=== PATIENT | male | born 1995 | race Caucasian/White ===

== ENCOUNTER 2020-02-08 02:38 | Emergency (ER) | payer SELFPAY ==
[2020-02-08 02:42] VITALS: BP 154/109; PULSE 82; RESP 20; O2SAT 99; BMI 21.4
--- NOTE | 2020-02-08 02:49 | ECG_ITS ---
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 Measurements Intervals [place] Rate: 68 P: 34 [place]: 138 QRS: 57 QRSD: 87 T: 52 QT: 353 QTc: 377 Interpretive Statements SINUS RHYTHM WITH SINUS ARRHYTHMIA Compared to ECG 02/04/2015 21:33:27 No significant changes Electronically Signed On 02-08-2020 19:04:17 CDT by Anant Amin M.D. [id number] f
--- NOTE | 2020-02-08 02:50 | ED_ITS ---
Documented by User: LEXIS Maciel 02/08/20 03:00 HPI - Weakness General: Chief complaint: Weakness Stated complaint: WEAKNESS Time Seen by Provider: 02/08/20 02:49 History of Present Illness: HPI Narrative: Patient comes in today for complaints of weakness. Patient states that he was at work and suddenly became faint and felt like he was going to pass out. Patient was concerned he might have a seizure. Patient has a history of one seizure that occurred about 7 years ago but has not had any further seizures since. No seizure was reported tonight. Patient is alert and is recovered at this time. Patient felt disc omfort in his chest but no significant chest pain. Patient reports not eating anything this morning but has had a Mountain Dew and an energy drink. Patient also reports some water. Patient appears well. Patient appears in no pain. Review of Systems General: Reports: 10 or more systems reviewed and unremarkable except in HPI and below Neuro: Reports: weakness in extremities Physical Exam Const: COMMON NORMALS: no acute distress and patient oriented x3 GENERAL APPEARANCE: cooperative HENMT: COMMON NORMALS: normocephalic and Normal external nose present HEAD & SCALP: normal to inspection and normocephalic NOSE: Normal external nose present MOUTH: Normal oral and palatal mucosa present THROAT: posterior oropharynx normal Eye: GENERAL EYE: appearance normal, both eyes and all related structures Neck/C-Spine: COMMON NORMALS: full ROM Lymph: LYMPHATIC: no lymphadenopathy noted Chest: COMMONS NORMALS: normal inspection of the chest Resp: COMMON NORMALS: normal respiratory effort EFFORT & INSPECTION: Yes able to speak in complete sentences Cardio: COMMON NORMALS: regular rate and regular rhythm RATE: regular rate RHYTHM: regular rhythm GI: COMMON NORMALS: non-tender Back/Pelvis: COMMON NORMALS: thoracic and lumbar spine normal to inspection Extremity: COMMON NORMALS: normal to inspection Neuro: COMMON NORMALS: patient oriented x3 and moves all extremities Psych: COMMON NORMALS: mental status grossly normal and cooperative Skin: COMMON NORMALS: no rashes or lesions noted GENERAL SKIN EXAM: no rashes or lesions noted Course ED course: , discussed with Dr. Moon who agreed to assume care of patient on my leave. Patient reports that he just feels much better since arriving at the emergency room. Patient appears well. Outstanding labs. EKG noted sinus rhythm. wjw Vital Signs: Vital signs: Vital Signs Pulse Rate 73 07/12/20 05:07 Respiratory Rate 17 02/08/20 05:07 Blood Pressure 155/88 02/08/20 05:07 Pulse Oximetry 99 02/08/20 05:07 MDM - Weakness MDM Narrative: Medical decision making narrative: Lab Data: Labs: Lab Results 02/08/20 02/08/20 02/08/20 Range/Units 02:48 02:48 02:48 WBC 10.8 H (4.0-10.0) 10^3/ uL RBC 5.47 H (4.1-5.3) 10^6/u L Hgb 15.6 (11.7-16.6) g/dL Hct 45.2 (42.0-52.0) % MCV 82.6 (80-94) fL MCH 28.5 (28.0-34.0) pg MCHC 34.5 (30.0-36.0) g/dL RDW 11.9 L (12.1-15.1) % Plt Count 298 (130-400) 10^3/c mm MPV 10.4 (7.4-10.4) fL Neut % (Auto) 63.0 % Lymph % (Auto) 31.0 % [place] % (Auto) 4.2 % Eos % (Auto) 0.9 % Baso % (Auto) 0.5 % Neut # (Auto) 6.84 (1.8-7.7) 10^3/u L Lymph # (Auto) 3.4 (0.8-4.8) 10^3/u L [place] # (Auto) 0.5 (0.2-0.9) 10^3/u L Eos # (Auto) 0.1 (0.0-0.8) 10^3/u L Baso # (Auto) 0.1 (0.0-0.1) 10^3/u L Nucleated RBC % (a uto) 0 % Nucleated RBCs # 0.0 /100WBC Sodium 138 (136-145) mmol/L Potassium 3.1 L (3.5-5.1) mmol/L Chloride 100 (98-107) mmol/L Carbon Dioxide 21 L (22-29) mmol/L Anion Gap 20.1 H (5-19) BUN 12 (6-20) mg/dL Creatinine 1.1 (0.7-1.2) mg/dL GFR Calculation 80.9 L (90-130) mL/min Glucose 105 (65-115) mg/dL Calculated Osmolal ity 282 L (285-295) mOsm/k g Calcium 10.3 (8.5-10.5) mg/dL Total Bilirubin 0.5 (0.15-1.2) mg/dL AST 21 (0-40) U/L ALT 17 (0-41) U/L Alkaline Phosphata se 73 (40-130) IU/L Creatine Kinase 294 (39-308) U/L Troponin T Gen 5 n g/L 6 (0-15) ng/L Total Protein 7.4 (6.6-8.7) g/dL Albumin 5.2 (3.5-5.2) g/dL Globulin 2.2 (1.3-4.6) g/dL Urine Color (Yellow) Urine Appearance (CLEAR) Urine pH (5-7) Ur Specific Gravit y (1.005-1.030) Urine Protein (Negative) Urine Glucose (UA) (Normal) Urine Ketones (Negative) Urine Blood (Negative) Urine Nitrate (Negative) Urine Bilirubin (NEGATIVE) Prot Sulfosalicyli c Acd (Negative) Urine Urobilinogen (Negative) mg/dL Ur Leukocyte Betty ase (Negative) Urine Opiates Scre en (Negative) ng/mL Ur Barbiturates Sc reen (Negative) ng/mL Ur Phencyclidine S crn (Negative) ng/mL Ur Amphetamines Sc reen (Negative) ng/mL U Benzodiazepines Scrn (Negative) ng/mL Urine Cocaine Scre en (Negative) ng/mL U Marijuana (THC) Screen (Negative) ng/mL 02/08/20 02/08/20 Range/Units 03:25 03:25 WBC (4.0-10.0) 10^3/ uL RBC (4.1-5.3) 10^6/u L Hgb (11.7-16.6) g/dL Hct (42.0-52.0) % MCV (80-94) fL MCH (28.0-34.0) pg MCHC (30.0-36.0) g/dL RDW (12.1-15.1) % Plt Count (130-400) 10^3/c mm MPV (7.4-10.4) fL Neut % (Auto) % Lymph % (Auto) % [place] % (Auto) % Eos % (Auto) % Baso % (Auto) % Neut # (Auto) (1.8-7.7) 10^3/u L Lymph # (Auto) (0.8-4.8) 10^3/u L [place] # (Auto) (0.2-0.9) 10^3/u L Eos # (Auto) (0.0-0.8) 10^3/u L Baso # (Auto) (0.0-0.1) 10^3/u L Nucleated RBC % (a uto) % Nucleated RBCs # /100WBC Sodium (136-145) mmol/L Potassium (3.5-5.1) mmol/L Chloride (98-107) mmol/L Carbon Dioxide (22-29) mmol/L Anion Gap (5-19) BUN (6-20) mg/dL Creatinine (0.7-1.2) mg/dL GFR Calculation (90-130) mL/min Glucose (65-115) mg/dL Calculated Osmolal ity (285-295) mOsm/k g Calcium (8.5-10.5) mg/dL Total Bilirubin (0.15-1.2) mg/dL AST (0-40) U/L ALT (0-41) U/L Alkaline Phosphata se (40-130) IU/L Creatine Kinase (39-308) U/L Troponin T Gen 5 n g/L (0-15) ng/L Total Protein (6.6-8.7) g/dL Albumin (3.5-5.2) g/dL Globulin (1.3-4.6) g/dL Urine Color Straw (Yellow) Urine Appearance Clear (CLEAR) Urine pH 8 H (5-7) Ur Specific Gravit y 1.005 (1.005-1.030) Urine Protein Neg (Negative) Urine Glucose (UA) Norm (Normal) Urine Ketones Negative (Negative) Urine Blood Neg (Negative) Urine Nitrate Negative (Negative) Urine Bilirubin Neg (NEGATIVE) Prot Sulfosalicyli c Acd Negative (Negative) Urine Urobilinogen Norm (Negative) mg/dL Ur Leukocyte Betty ase Negative (Negative) Urine Opiates Scre en Negative (Negative) ng/mL Ur Barbiturates Sc reen Negative (Negative) ng/mL Ur Phencyclidine S crn Negative (Negative) ng/mL Ur Amphetamines Sc reen Negative (Negative) ng/mL U Benzodiazepines Scrn Negative (Negative) ng/mL Urine Cocaine Scre en Negative (Negative) ng/mL U Marijuana (THC) Screen Negative (Negative) ng/mL EKG Data^: EKG 1: Attestation: I personally reviewed and interpreted this EKG as follows: (0255, sinus arrhythmia, rate 77, no ectopy, no ST elevation.) Discharge Plan Discharge Patient Disposition: Home, Self-Care Clinical Impression: Weakness Condition: Stable Discharge Orders: Discharge Order (Routine); Ordered 02/08/20 Ordered By: Ty Moon Discharge Diet: Advance as tolerated Discharge Activity: Limit activity as instructed Patient Instructions: Weakness (ED) Activity Restrictions/Additional Instructions: Drink plenty of water for the next 48 hours. Rest in a cool environment for the next 48 hours. If feeling back to normal, you may return to work. Avoid caffeinated drinks. Return for worsening weakness despite the above, chest discomfort, fever, shortness of breath, any other concerning symptoms. Stand Alone Forms: Work/School Release Discharge Date/Time: 02/08/20 05:08 Coding Level of Care Code ED Site Acquisition Manager for Chg Fwd Exam Comprehensive Documented by User: Ty Moon DO 02/08/20 18:23 HPI - Weakness General: Chief complaint: Weakness Stated complaint: WEAKNESS Time Seen by Provider: 02/08/20 02:49 Course Vital Signs: Vital signs: Vital Signs Pulse Rate 73 02/08/20 05:07 Respiratory Rate 17 02/08/20 05:07 Blood Pressure 155/88 02/08/20 05:07 Pulse Oximetry 99 02/08/20 05:07 MDM - Weakness MDM Narrative: Medical decision making narrative: 24-year-old male checked out to me by LEXIS Henderson. I agree with his history, exam, and management. The patient's potassium was low which was repleted. He has been allowed to drink p.o. fluids here. He is feeling much better. His EKG shows sinus arrhythmia with no ST elevation or depression. His troponin was negative. His other labs are benign. He will be allowed home. Lab Data: Labs: Lab Results 02/08/20 02/08/20 02/08/20 Range/Units 02:48 02:48 02:48 WBC 10.8 H (4.0-10.0) 10^3/ uL RBC 5.47 H (4.1-5.3) 10^6/u L Hgb 15.6 (11.7-16.6) g/dL Hct 45.2 (42.0-52.0) % MCV 82.6 (80-94) fL MCH 28.5 (28.0-34.0) pg MCHC 34.5 (30.0-36.0) g/dL RDW 11.9 L (12.1-15.1) % Plt Count 298 (130-400) 10^3/c mm MPV 10.4 (7.4-10.4) fL Neut % (Auto) 63.0 % Lymph % (Auto) 31.0 % [place] % (Auto) 4.2 % Eos % (Auto) 0.9 % Baso % (Auto) 0.5 % Neut # (Auto) 6.84 (1.8-7.7) 10^3/u L Lymph # (Auto) 3.4 (0.8-4.8) 10^3/u L [place] # (Auto) 0.5 (0.2-0.9) 10^3/u L Eos # (Auto) 0.1 (0.0-0.8) 10^3/u L Baso # (Auto) 0.1 (0.0-0.1) 10^3/u L Nucleated RBC % (a uto) 0 % Nucleated RBCs # 0.0 /100WBC Sodium 138 (136-145) mmol/L Potassium 3.1 L (3.5-5.1) mmol/L Chloride 100 (98-107) mmol/L Carbon Dioxide 21 L (22-29) mmol/L Anion Gap 20.1 H (5-19) BUN 12 (6-20) mg/dL Creatinine 1.1 (0.7-1.2) mg/dL GFR Calculation 80.9 L (90-130) mL/min Glucose 105 (65-115) mg/dL Calculated Osmolal ity 282 L (285-295) mOsm/k g Calcium 10.3 (8.5-10.5) mg/dL Total Bilirubin 0.5 (0.15-1.2) mg/dL AST 21 (0-40) U/L ALT 17 (0-41) U/L Alkaline Phosphata se 73 (40-130) IU/L Creatine Kinase 294 (39-308) U/L Troponin T Gen 5 n g/L 6 (0-15) ng/L Total Protein 7.4 (6.6-8.7) g/dL Albumin 5.2 (3.5-5.2) g/dL Globulin 2.2 (1.3-4.6) g/dL Urine Color (Yellow) Urine Appearance (CLEAR) Urine pH (5-7) Ur Specific Gravit y (1.005-1.030) Urine Protein (Negative) Urine Glucose (UA) (Normal) Urine Ketones (Negative) Urine Blood (Negative) Urine Nitrate (Negative) Urine Bilirubin (NEGATIVE) Prot Sulfosalicyli c Acd (Negative) Urine Urobilinogen (Negative) mg/dL Ur Leukocyte Betty ase (Negative) Urine Opiates Scre en (Negative) ng/mL Ur Barbiturates Sc reen (Negative) ng/mL Ur Phencyclidine S crn (Negative) ng/mL Ur Amphetamines Sc reen (Negative) ng/mL U Benzodiazepines Scrn (Negative) ng/mL Urine Cocaine Scre en (Negative) ng/mL U Marijuana (THC) Screen (Negative) ng/mL 02/08/20 02/08/20 Range/Units 03:25 03:25 WBC (4.0-10.0) 10^3/ uL RBC (4.1-5.3) 10^6/u L Hgb (11.7-16.6) g/dL Hct (42.0-52.0) % MCV (80-94) fL MCH (28.0-34.0) pg MCHC (30.0-36.0) g/dL RDW (12.1-15.1) % Plt Count (130-400) 10^3/c mm MPV (7.4-10.4) fL Neut % (Auto) % Lymph % (Auto) % [place] % (Auto) % Eos % (Auto) % Baso % (Auto) % Neut # (Auto) (1.8-7.7) 10^3/u L Lymph # (Auto) (0.8-4.8) 10^3/u L [place] # (Auto) (0.2-0.9) 10^3/u L Eos # (Auto) (0.0-0.8) 10^3/u L Baso # (Auto) (0.0-0.1) 10^3/u L Nucleated RBC % (a uto) % Nucleated RBCs # /100WBC Sodium (136-145) mmol/L Potassium (3.5-5.1) mmol/L Chloride (98-107) mmol/L Carbon Dioxide (22-29) mmol/L Anion Gap (5-19) BUN (6-20) mg/dL Creatinine (0.7-1.2) mg/dL GFR Calculation (90-130) mL/min Glucose (65-115) mg/dL Calculated Osmolal ity (285-295) mOsm/k g Calcium (8.5-10.5) mg/dL Total Bilirubin (0.15-1.2) mg/dL AST (0-40) U/L ALT (0-41) U/L Alkaline Phosphata se (40-130) IU/L Creatine Kinase (39-308) U/L Troponin T Gen 5 n g/L (0-15) ng/L Total Protein (6.6-8.7) g/dL Albumin (3.5-5.2) g/dL Globulin (1.3-4.6) g/dL Urine Color Straw (Yellow) Urine Appearance Clear (CLEAR) Urine pH 8 H (5-7) Ur Specific Gravit y 1.005 (1.005-1.030) Urine Protein Neg (Negative) Urine Glucose (UA) Norm (Normal) Urine Ketones Negative (Negative) Urine Blood Neg (Negative) Urine Nitrate Negative (Negative) Urine Bilirubin Neg (NEGATIVE) Prot Sulfosalicyli c Acd Negative (Negative) Urine Urobilinogen Norm (Negative) mg/dL Ur Leukocyte Ebtty ase Negative (Negative) Urine Opiates Scre en Negative (Negative) ng/mL Ur Barbiturates Sc reen Negative (Negative) ng/mL Ur Phencyclidine S crn Negative (Negative) ng/mL Ur Amphetamines Sc reen Negative (Negative) ng/mL U Benzodiazepines Scrn Negative (Negative) ng/mL Urine Cocaine Scre en Negative (Negative) ng/mL U Marijuana (THC) Screen Negative (Negative) ng/mL Discharge Plan Discharge Patient Disposition: Home, Self-Care Clinical Impression: Weakness Condition: Stable Discharge Orders: Discharge Order (Routine); Ordered 02/08/20 Ordered By: Ty Moon Discharge Diet: Advance as tolerated Discharge Activity: Limit activity as instructed Patient Instructions: Weakness (ED) Activity Restrictions/Additional Instructions: Drink plenty of water for the next 48 hours. Rest in a cool environment for the next 48 hours. If feeling back to normal, you may return to work. Avoid caffeinated drinks. Return for worsening weakness despite the above, chest discomfort, fever, shortness of breath, any other concerning symptoms. Stand Alone Forms: Work/School Release Discharge Date/Time: 02/08/20 05:08 Coding Level of Care Code ED Site Acquisition Manager for Ignacio Fwalejandrina Exam Comprehensive
[2020-02-08 03:02] VITALS: BP 167/90; PULSE 77; RESP 16; O2SAT 99
[2020-02-08 03:07] LABS: Basophils # 0.1 10^3/uL (0.0-0.1); Basophils % 0.5 %; Eosinophils # 0.1 10^3/uL (0.0-0.8); Eosinophils % 0.9 %; Hematocrit 45.2 % (42.0-52.0); Hemoglobin 15.6 g/dL (11.7-16.6); Lymphocytes # 3.4 10^3/uL (0.8-4.8); Mean Corpuscular HGB Conc 34.5 g/dL (30.0-36.0); Mean Corpuscular Hemoglobin 28.5 pg (28.0-34.0); Mean Corpuscular Volume 82.6 fL (80-94); Mean Platelet Volume 10.4 fL (7.4-10.4); Monocytes # 0.5 10^3/uL (0.2-0.9); Monocytes % 4.2 %; Neutrophils # 6.84 10^3/uL (1.8-7.7); Nucleated Red Blood Cells % 0 %; Platelet Count 298 10^3/cmm (130-400); Red Blood Count 5.47 10^6/uL (4.1-5.3); Red Cell Distribution Width 11.9 % (12.1-15.1); White Blood Count 10.8 10^3/uL (4.0-10.0)
[2020-02-08 03:08] VITALS: BP 146/79; BP 173/87; PULSE 76; PULSE 77; PULSE 84
[2020-02-08 03:20] LABS: Alanine Aminotransferase 17 U/L (0-41); Albumin Level 5.2 g/dL (3.5-5.2); Alkaline Phosphatase 73 IU/L (40-130); Anion Gap 20.1 (5-19); Aspartate Amino Transferase 21 U/L (0-40); Blood Urea Nitrogen 12 mg/dL (6-20); Calcium 10.3 mg/dL (8.5-10.5); Carbon Dioxide 21 mmol/L (22-29); Chloride 100 mmol/L (98-107); Creatine Phosphokinase 294 U/L (39-308); Globulin 2.2 g/dL (1.3-4.6); Glomerular Filtration Rate 80.9 mL/min (90-130); Glucose 105 mg/dL (65-115); Osmolality Calculated 282 mOsm/kg (285-295); Potassium 3.1 mmol/L (3.5-5.1); Sodium 138 mmol/L (136-145); Total Bilirubin 0.5 mg/dL (0.15-1.2); Total Protein 7.4 g/dL (6.6-8.7); Troponin T (5th) Once 6 ng/L (0-15)
[2020-02-08] MEDS: sodium chloride 0.9% 1,000 ML 999 ML IV (03:26)
[2020-02-08 03:42] LABS: Add Urine Microscopic? NO
[2020-02-08 04:01] LABS: Urine Appearance Clear (CLEAR); Urine Color Straw (Yellow)
[2020-02-08 04:02] LABS: Bilirubin Urine Neg (NEGATIVE); Blood Urine Neg (Negative); Glucose Urine UA Norm (Normal); Ketones Urine Negative (Negative); Leukocyte Esterase Urine Negative (Negative); Nitrate Urine Negative (Negative); Protein Urine Neg (Negative); Specific Gravity, Urine 1.005 (1.005-1.030); Sulfosalicylic Acid Urine Negative (Negative); Urobilinogen Urine Norm (Negative); pH Urine 8 (5-7)
[2020-02-08 04:05] LABS: Amphetamines Screen Urine Negative (Negative); Barbiturates Screen Urine Negative (Negative); Benzodiazepines Screen Urine Negative (Negative); Cocaine Screen Urine Negative (Negative); Opiate Screen Urine Negative (Negative); PCP Screen Urine Negative (Negative); THC Screen Urine Negative (Negative)
[2020-02-08] MEDS: potassium chloride ER 10 mEq Tablet 40 MEQ PO (04:08)
[2020-02-08 04:10] VITALS: BP 173/98; PULSE 72; RESP 16; O2SAT 100
[2020-02-08 05:07] VITALS: BP 155/88; PULSE 73; RESP 17; O2SAT 99
== END 2020-02-08 05:08 | disposition home or self-care (01) ==
PROVIDERS: Nurse Practitioner Family; Emergency Provider Emergency Medicine
DX: R53.1 Weakness (principal)
CPT/HCPCS: 12345; 80053; 80306; 81003; 82550; 84484; 85025; 93005; 96360; 99284; J7030

== ENCOUNTER 2022-04-18 10:01 | Emergency (ER) | payer MEDICAID, SELFPAY ==
[2022-04-18 10:14] VITALS: BMI 21.4
[2022-04-18 10:17] VITALS: BP 168/108; PULSE 66; RESP 17; TEMP 36.8; O2SAT 100
--- NOTE | 2022-04-18 10:46 | XRR_ITS ---
PROCEDURE INFORMATION: Exam: XR Left Ankle Exam date and time: 04/18/2022 10:59 AM Age: 27 years old Clinical indication: Injury or trauma; Other: Fell in a hole; Sprain or strain; Ankle; Left; Additional info: Pain and swelling ankle after tripping in a hole TECHNIQUE: Imaging protocol: Radiologic exam of the Left ankle. Views: 1 or 2 views. Total images: 304 COMPARISON: No relevant prior studies available. FINDINGS: Bones/joints: Questionable horizontal linear lucency involving the anterior process of the calcaneus most likely represents a summation of shadows but a nondisplaced fracture cannot be excluded. CT could be performed to further evaluate if deemed necessary. No additional fracture, subluxation, or dislocation detected. Soft tissues: Lateral soft tissue swelling is evident. XR/XR ankle LT 2V [id number] IMPRESSION: 1. Lateral soft tissue swelling is evident. 2. Questionable horizontal linear lucency involving the anterior process of the calcaneus most likely represents a summation of shadows but a nondisplaced fracture cannot be excluded. CT could be performed to further evaluate if deemed necessary.
--- NOTE | 2022-04-18 10:46 | XRR_ITS ---
PROCEDURE INFORMATION: Exam: XR Right Hand Exam date and time: 04/18/2022 11:00 AM Age: 27 years old Clinical indication: Injury or trauma; Other: Punching a wall; Blunt trauma (contusions or hematomas); Hand; Right; Additional info: Pain and swelling after punching a wall on accident. TECHNIQUE: Imaging protocol: Radiologic exam of the Right hand. Views: 3 or more views. Total images: 2 COMPARISON: No relevant prior studies available. FINDINGS: Bones/joints: Boxer's fracture: Fracture of the 5th metacarpal with volar angulation of the distal fragment. No additional fracture, subluxation, or dislocation detected. Soft tissues: Dorsal soft tissue swelling is present. XR/XR hand RT min 3V* [id number] IMPRESSION: 1. Dorsal soft tissue swelling is present. 2. Boxer's fracture: Fracture of the 5th metacarpal with volar angulation of the distal fragment.
--- NOTE | 2022-04-18 11:06 | ED_ITS ---
Documented by User: Kristel Encinas, COUNTY COURT JUDGE-C 04/18/22 16:22 HPI - Extremity Problem General: Chief complaint: Extremity Problem,Nontraumatic Stated complaint: left leg and right hands are in pain Time Seen by Provider: 04/18/22 10:04 History of Present Illness: Patient is in today for left ankle pain and right hand pain. He reports that on April 03, 1940 he rolled his left ankle while working on a job site down in [place]. He reports that it started to get somewhat better and then he got back yesterday and tripped in a hole and rolled his ankle again. He reports significant pain and swelling to the left ankle lateral side. He reports that it hurts worse to walk on it. He is able to bear weight. He reports that he also hurt his right hand yesterday working in his garage. He was pushing on a piece of equipment very hard and inadvertently punched the wall. He has significant swelling of his right hand dorsal aspect worse over the fifth metacarpal. Associated symptoms: Deny chest pain or fever(s) Review of Systems Const: Denies: fever(s), chills or body aches Card: Denies: chest pain or palpitations Resp: Denies: dyspnea Musc: Reports: extremity pain and extremity swelling Physical Exam Const: COMMON NORMALS: no acute distress, patient oriented x3 and alert Resp: COMMON NORMALS: normal respiratory effort Extremity: NARRATIVE EXTREMITY EXAM: Right hand with significant swelling moderate bruising noted dorsal aspect of the hand worse over the fifth metacarpal. Patient with limited extension and flexion of the third through fifth digits due to pain and swelling. CSM within normal limits to the distal fingers. Left ankle with moderate swelling and bruising noted surrounding the lateral malleolus. Tenderness to palpation lateral malleolus. Limited range of motion due to pain and swelling. Patient is able to bear weight on the ankle. CSM within normal limits to left foot. Neuro: COMMON NORMALS: patient oriented x3 SENSORIUM/ORIENTATION: Yes alert Course Vital Signs: Vital signs: Vital Signs Temperature 98.2 F 04/18/22 10:17 Pulse Rate 66 04/18/22 10:17 Respiratory Rate 17 04/18/22 10:17 Blood Pressure 168/108 04/18/22 10:17 Pulse Oximetry 100 04/18/22 10:17 Oxygen Delivery Me thod 04/18/22 10:17 MDM - Extremity (Nontraumatic) Medical Decision Making 27-year-old male in today for 2 separate injuries. First injury is of the left ankle. He reports that he sprained ankle early March and reinjured it yesterday when he tripped into a hole. He is able to bear weight but is limping due to pain. There is significant bruising and swelling to the ankle. Wet read x-ray of the ankle does not show any acute osseous deformity or fracture. Will Charles wrap the ankle and provide instruction for conservative care of ankle sprain. Second injury is the right hand which patient reports was injured yesterday while he was working on a piece of equipment in his garage. Patient reports that he was pushing and inadvertently hit the wall very hard. The hand is swollen and bruised worse over the dorsal aspect of the hand in the region of the fifth metacarpal. Patient has limited flexion extension of the fingers due to pain and swelling. CSM is within normal limits to hand and the distal fingers. Wet read x-ray shows a fracture neck of the fifth metacarpal consistent with boxer's fracture. Radiologist reports volar angulation of the distal fragment. I called and spoke with Dr. Bhandari and he viewed the x-ray. He is agreeable with an ulnar gutter splint and follow-up with his nurse practitioner in clinic. Radiology read of x-ray of the ankle show concern for lucency at the calcaneus. Radiologist offered that a CT could be performed to further evaluate. The patient is really concerned about the pain that he is having in his left foot and ankle. He states that that far outweighs the pain in his right hand. CT was done for further evaluation given the patient's significant pain in the ankle and foot. CT did not show any acute fractures or dislocations. Ankle is Charles wrapped. I discussed the case with Dr. Keller who is agreeable to providing patient with pain control upon discharge. Hydrocodone 5/325 1 p.o. every 4-6 hours prescription was provided on a written prescription per Dr. Keller. Re ferral was made to Dr. Bhandari's office. Lab Data Radiology Impressions Ankle X-Ray 04/18/22 10:46 IMPRESSION: 1. Lateral soft tissue swelling is evident. 2. Questionable horizontal linear lucency involving the anterior process of the calcaneus most likely represents a summation of shadows but a nondisplaced fracture cannot be excluded. CT could be performed to further evaluate if deemed necessary. Hand X-Ray 04/18/22 10:46 IMPRESSION: 1. Dorsal soft tissue swelling is present. 2. Boxer's fracture: Fracture of the 5th metacarpal with volar angulation of the distal fragment. Foot CT 04/18/22 12:35 IMPRESSION: No acute fractures Discharge Plan Discharge Patient Disposition: Home Clinical Impression: Boxer's fracture Severe ankle sprain Qualifiers: Encounter type: initial encounter Laterality: left Qualified Code(s): S93.402A - Sprain of unspecified ligament of left ankle, initial encounter Condition: Stable Discharge Orders: Discharge ED (Routine); Ordered 04/18/22 Ordered By: Kristel Encinas Discharge Diet: Usual diet Discharge Activity: Limit activity as instructed Patient Instructions: Ankle Sprain (ED), Boxer Fracture (ED), Opioid Safety Activity Restrictions/Additional Instructions: Charles wrap, ice, elevate the ankle. Minimal weightbearing for the next 2 to 3 days. Keep the splint on your hand in place. Do not get the splint wet. Follow-up with orthopedics. They should call you to schedule that appointment. Return to the ER as needed for any new or worsening symptoms. Stand Alone Forms: Work/School Release Coding Level of Care Code ED Wood Turning Lathe Operator for Dianeg Fwd Exam Expanded Problem Focused Documented by User: Dominick Keller DO 04/19/22 06:04 HPI - Extremity Problem General: Chief complaint: Extremity Problem,Nontraumatic Stated complaint: left leg and right hands are in pain Time Seen by Provider: 04/18/22 10:04 Course Vital Signs: Vital signs: Vital Signs Temperature 98.2 F 04/18/22 10:17 Pulse Rate 66 04/18/22 10:17 Respiratory Rate 17 04/18/22 10:17 Blood Pressure 168/108 04/18/22 10:17 Pulse Oximetry 100 04/18/22 10:17 Oxygen Delivery Me thod 04/18/22 10:17 MDM - Extremity (Nontraumatic) Medical Decision Making 27-year-old male in today for 2 separate injuries. First injury is of the left ankle. He reports that he sprained ankle early March and reinjured it yesterday when he tripped into a hole. He is able to bear weight but is limping due to pain. There is significant bruising and swelling to the ankle. Wet read x-ray of the ankle does not show any acute osseous deformity or fracture. Will Charles wrap the ankle and provide instruction for conservative care of ankle sprain. Second injury is the right hand which patient reports was injured yesterday while he was working on a piece of equipment in his garage. Patient reports that he was pushing and inadvertently hit the wall very hard. The hand is swollen and bruised worse over the dorsal aspect of the hand in the region of the fifth metacarpal. Patient has limited flexion extension of the fingers due to pain and swelling. CSM is within normal limits to hand and the distal fingers. Wet read x-ray shows a fracture neck of the fifth metacarpal consistent with boxer's fracture. Radiologist reports volar angulation of the distal fragment. I called and spoke with Dr. Bhandari and he viewed the x-ray. He is agreeable with an ulnar gutter splint and follow-up with his nurse pr actitioner in clinic. Radiology read of x-ray of the ankle show concern for lucency at the calcaneus. Radiologist offered that a CT could be performed to further evaluate. The patient is really concerned about the pain that he is having in his left foot and ankle. He states that that far outweighs the pain in his right hand. CT was done for further evaluation given the patient's significant pain in the ankle and foot. CT did not show any acute fractures or dislocations. Ankle is Charles wrapped. I discussed the case with Dr. Keller who is agreeable to providing patient with pain control upon discharge. Hydrocodone 5/325 1 p.o. every 4-6 hours prescription was provided on a written prescription per Dr. Keller. Referral was made to Dr. Bhandari's office. Chart reviewed and patient discussed with midlevel. Agree with assessment and plan. Lab Data Radiology Impressions Ankle X-Ray 04/18/22 10:46 IMPRESSION: 1. Lateral soft tissue swelling is evident. 2. Questionable horizontal linear lucency involving the anterior process of the calcaneus most likely represents a summation of shadows but a nondisplaced fracture cannot be excluded. CT could be performed to further evaluate if deemed necessary. Hand X-Ray 04/18/22 10:46 IMPRESSION: 1. Dorsal soft tissue swelling is present. 2. Boxer's fracture: Fracture of the 5th metacarpal with volar angulation of the distal fragment. Foot CT 04/18/22 12:35 IMPRESSION: No acute fractures Discharge Plan Discharge Patient Disposition: Home Clinical Impression: Boxer's fracture Severe ankle sprain Qualifiers: Encounter type: initial encounter Laterality: left Qualified Code(s): S93.402A - Sprain of unspecified ligament of left ankle, initial encounter Condition: Stable Discharge Orders: Discharge ED (Routine); Ordered 04/18/22 Ordered By: Kristel Encinas Discharge Diet: Usual diet Discharge Activity: Limit activity as instructed Patient Instructions: Ankle Sprain (ED), Boxer Fracture (ED), Opioid Safety Activity Restrictions/Additional Instructions: Charles wrap, ice, elevate the ankle. Minimal weightbearing for the next 2 to 3 days. Keep the splint on your hand in place. Do not get the splint wet. Follow-up with orthopedics. They should call you to schedule that appointment. Return to the ER as needed for any new or worsening symptoms. Stand Alone Forms: Work/School Release Coding Level of Care Code ED Wood Turning Lathe Operator for Ignacio Fwd Exam Expanded Problem Focused
--- NOTE | 2022-04-18 12:35 | CT_ITS ---
WS: [id number] NONCONTRAST CT OF THE LEFT FOOT TECHNIQUE: Noncontrast CT LEFT foot with coronal and sagittal reformatted images. CLINICAL INFORMATION: concerning lucency of calcaneus on xr COMPARISON: Radiograph April 18, 2022 DLP: 146.[address] scans at [facility] use at least one of these dose optimization techniques: automated e xposure control; mA and/or kV adjustment per patient size (includes targeted exams where dose is matc hed to clinical indication); or iterative reconstruction. FINDINGS: Normal anatomic alignment. Normal ankle mortise. Normal medial lateral malleolus. Normal talar dome. 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 Moderate soft tis maria del carmen edema involving the lower leg and ankle worse involving the lateral ankle extending into the hind foot. Normal phalanges. Base of the 5th metatarsal appears normal. Normal metatarsals. CT/CT foot LT wo con* [id number] IMPRESSION: No acute fractures
[2022-04-18] MEDS: tetanus-dipt-pertussis 0.5 mL SDV IM (14:04)
--- NOTE | 2022-04-19 12:14 | DCPLANNER ---
Addendum entered by Bella Borges 04/25/22 15:26: Patient had a follow up appointment scheduled with ortho - patient did attend appointment. Addendum entered by Bella Borges 04/19/22 15:07: Patient has a follow up appointment scheduled for Thursday, April 21, 2022 at 9:[address] Bhandari at ortho. Clinic will call patient with appointment information. Original Note: call manager had message to schedule a follow up appointment for patient with ortho. call manager sent patients information to the front office staff at ortho. Patients information will be printed and reviewed. Clinic will call patient with appointment information.
== END 2022-04-18 14:15 | disposition home or self-care (01) ==
PROVIDERS: Emergency Provider Nurse Practitioner Family
DX: S93.402A Sprain of unspecified ligament of left ankle, initial encounter (principal); S62.396A Other fracture of fifth metacarpal bone, right hand, initial encounter for closed fracture; W01.0XXA Fall on same level from slipping, tripping and stumbling without subsequent striking against object, initial encounter; Z23 Encounter for immunization
CPT/HCPCS: 73120; 73130; 73600; 73700; 90471; 90715; 99284

== ENCOUNTER 2022-04-21 10:24 | Outpatient (CLI) | payer MEDICAID, SELFPAY | END 2022-04-21 10:25 | disposition home or self-care (01) | LOC: SPT 10:25 | PROVIDERS: Visit Provider Orthopaedic Surgery | DX: Z46.89 Encounter for fitting and adjustment of other specified devices (principal); S62.306S Unspecified fracture of fifth metacarpal bone, right hand, sequela; X58.XXXS Exposure to other specified factors, sequela | CPT/HCPCS: 97760; L3984 ==

== ENCOUNTER 2022-09-15 06:07 | Emergency (ER) | payer MEDICAID, SELFPAY ==
[2022-09-15 06:12] VITALS: BP 132/87; PULSE 131; RESP 20; TEMP 36.7; O2SAT 99; BMI 22.0
--- NOTE | 2022-09-15 06:16 | XR_ITS ---
WS: [id number] Portable AP upright chest, 09/15/2022 Clinical Data: dyspnea/cough Comparison: Portable chest, 02/04/2015 Findings: No nodules, masses or effusions are seen. The heart is normal. The pulmonary vascularity is not increased. No pneumonia or pneumothorax is seen. Monitor leads are on the chest wall. XR/XR chest 1V portable [id number] Impression: Negative chest.
--- NOTE | 2022-09-15 06:30 | ECG_ITS ---
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 Measurements Intervals [place] Rate: 124 P: 64 HI: 136 QRS: 58 QRSD: 94 T: 77 QT: 417 QTc: 601 Interpretive Statements SINUS TACHYCARD[address] ST DEVIATION AND MODERATE T-WAVE ABNORMALITY, CONSIDER ANTERIOR ISCHEMIA [-0.1+ mV T-WAVE IN V3/V4] Compared to ECG 02/08/2020 03:03:34 T-wave abnormality now present Possible ischemia now present Sinus rhythm no longer present Sinus arrhythmia no longer present Electronically Signed On 09-15-2022 16:47:15 GRANULATOR OPERATOR by Emiyl Cabrera M.D. [id number]
[2022-09-15 06:54] LABS: Basophils % 0.3 %; Hematocrit 45.2 % (42.0-52.0); Hemoglobin 15.6 g/dL (11.7-16.6); Lymphocytes # 1.3 10^3/uL (0.8-4.8); Lymphocytes % 9.3 %; Mean Corpuscular HGB Conc 34.5 g/dL (30.0-36.0); Mean Corpuscular Hemoglobin 28.7 pg (28.0-34.0); Mean Corpuscular Volume 83.1 fl (80-94); Mean Platelet Volume 10.1 fL (7.4-10.4); Monocytes # 0.4 10^3/uL (0.2-0.9); Monocytes % 2.6 %; Neutrophils # 12.37 10^3/uL (1.8-7.7); Neutrophils % 87.3 %; Nucleated Red Blood Cells % 0 %; Platelet Count 285 10^3/cmm (130-400); Red Blood Count 5.44 10^6/uL (4.1-5.3); White Blood Count 14.2 10^3/uL (4.0-10.0)
[2022-09-15 07:15] LABS: Alanine Aminotransferase 15 U/L (0-41); Albumin Level 4.9 g/dL (3.5-5.2); Alkaline Phosphatase 71 U/L (40-130); Aspartate Amino Transferase 19 U/L (0-40); Chloride 104 mmol/L (98-107); Potassium 4.3 mmol/L (3.5-5.1); Sodium 141 mmol/L (136-145)
[2022-09-15 07:22] LABS: Anion Gap 20.1 (5-19); Blood Urea Nitrogen 9 mg/dL (6-20); Calcium 9.6 mg/dL (8.5-10.5); Carbon Dioxide 21 mmol/L (22-29); Globulin 2.2 g/dL (1.3-4.6); Glomerular Filtration Rate 99.8 mL/min (90-130); Glucose 116 mg/dL (65-115); Osmolality Calculated 290 mOsm/kg (285-295); Total Bilirubin 0.3 mg/dL (0.15-1.2); Total Protein 7.1 g/dL (6.6-8.7)
[2022-09-15 07:23] LABS: Acetaminophen < 5.0 ug/mL (10-30); Alcohol Level < 10 mg/dL (0-10); Salicylate < 0.3 mg/dL (3-10)
--- NOTE | 2022-09-15 07:37 | W.ED.OVERDOS ---
HPI - Overdose General: Chief Complaint: Overdose Stated Complaint: poss overdose Time Seen by Provider: 09/15/22 06:15 Source: patient Mode of arrival: ambulatory History of Present Illness: 27-year-old male presents to the emergency room reporting been drinking a lot of whiskey and using a lot of methamphetamines recently feels like he had a seizure feels like he is going to have another 1 he has not had any witnessed seizures. He has a history of seizures while using drugs and alcohol in the past. He is quite anxious and tachycardic on arrival but is otherwise stable denies any injury. No specific issue other than feeling like he might have a seizure. He last used methamphetamine and drank alcohol last evening. Treatments Prior to Arrival: none Review of Systems Const: Denies: fever(s), chills, body aches, change in appetite, fatigue or malaise ENMT: Denies: throat pain, ear or mastoid pain, nasal discharge or nasal congestion Card: Denies: chest pain, edema, dyspnea on exertion or orthopnea Resp: Denies: dyspnea, productive cough or non-productive cough GI: Denies: abdominal pain, nausea, vomiting, hematemesis, coffee ground emesis, diarrhea, constipation, bloating, hematochezia or melena : Denies: flank pain, dysuria, urinary frequency or urinary urgency Skin/Breast: Denies: rash or pruritus [facility] ED PFSH: Medical History (Updated 09/15/22 @ 07:42 by Dominick Keller DO) Fracture of fifth metacarpal bone of right hand Surgical History (Updated 09/15/22 @ 07:38 by Dominick Keller DO) No significant past surgical history Social History (Updated 09/15/22 @ 07:39 by Dominick Keller DO) Smoking and tobacco status: current every day smoker Alcohol intake: current Substance/Drug Use: current Substance/Drug use type: Methamphetamine Physical Exam Const: GENERAL APPEARANCE: cooperative and comfortable ORIENTATION/CONSCIOUSNESS: Yes awake, Yes oriented to person, Yes oriented to place and Yes oriented to time HENMT: COMMON NORMALS: normocephalic, atraumatic and hearing grossly normal bilaterally HEAD & SCALP: normocephalic and atraumatic Resp: COMMON NORMALS: normal respiratory effort, No retractions, No use of accessory muscles and clear to auscultation bilaterally AUSCULTATION: clear to auscultation bilaterally Cardio: COMMON NORMALS: regular rate, regular rhythm and No murmurs present (Cardio) RATE: regular rate RHYTHM: regular rhythm GI: COMMON NORMALS: Soft to palpation and No hepatosplenomegaly present AUSCULTATION: Yes normoactive bowel sounds PALPATION: Yes Soft to palpation, No Tenderness to palpation present (GI), No Guarding due to palpation present (GI) and Yes No hepatosplenomegaly present Extremity: COMMON NORMALS: normal to inspection, capillary refill normal, no clubbing, cyanosis or edema, no calf tenderness and no pedal edema Neuro: SENSORIUM/ORIENTATION: Yes oriented to person, Yes oriented to place and Yes oriented to time Skin: COMMON NORMALS: no rashes or lesions noted GENERAL SKIN EXAM: no rashes or lesions noted Course Vital Signs: Vital signs: Vital Signs Temperature 98.0 F 09/15/22 06:12 Pulse Rate 131 H 09/15/22 06:12 Respiratory Rate 20 H 09/15/22 06:12 Blood Pressure 132/87 09/15/22 06:12 Pulse Oximetry 99 09/15/22 06:12 MDM - Overdose Medical Decision Making Patient has polypharmacy. Drinks alcohol and large volumes binge drinking from his description. Additionally he uses methamphetamines and at times takes OxyContin illicitly. Vital signs are stable at this time white count is mildly elevated likely demargination from the stress of the intoxication. His liver functions and electrolytes are normal no intervention required at this time. Encourage patient to avoid substance abuse Medical Records I reviewed the patient's medical records. Lab Data I reviewed the patient's lab results. 09/15/22 06:30 09/15/22 06:30 Laboratory Results WBC 14.2 10^3/uL (4.0-10.0) H 09/15/22 06:30 RBC 5.44 10^6/uL (4.1-5.3) H 09/15/22 06:30 Hgb 15.6 g/dL (11.7-16.6) 09/15/22 06:30 Hct 45.2 % (42.0-52.0) 09/15/22 06:30 MCV 83.1 fl (80-94) 09/15/22 06:30 MCH 28.7 pg (28.0-34.0) 09/15/22 06:30 MCHC 34.5 g/dL (30.0-36.0) 09/15/22 06:30 RDW 13.0 % (12.1-15.1) 09/15/22 06:30 Plt Count 285 10^3/cmm (130-400) 09/15/22 06:30 MPV 10.1 fL (7.4-10.4) 09/15/22 06:30 Neut % (Auto) 87.3 % 09/15/22 06:30 Lymph % (Auto) 9.3 % 09/15/22 06:30 [place] % (Auto) 2.6 % 09/15/22 06:30 Eos % (Auto) 0.0 % 09/15/22 06:30 Baso % (Auto) 0.3 % 09/15/22 06:30 Neut # (Auto) 12.37 10^3/uL (1.8-7.7) H 09/15/22 06:30 Lymph # (Auto) 1.3 10^3/uL (0.8-4.8) 09/15/22 06:30 [place] # (Auto) 0.4 10^3/uL (0.2-0.9) 09/15/22 06:30 Eos # (Auto) 0.0 10^3/uL (0.0-0.8) 09/15/22 06:30 Baso # (Auto) 0.0 10^3/uL (0.0-0.1) 09/15/22 06:30 Nucleated RBC % (auto) 0 % 09/15/22 06:30 Nucleated RBCs # 0.0 /100WBC 09/15/22 06:30 Sodium 141 mmol/L (136-145) 09/15/22 06:30 Potassium 4.3 mmol/L (3.5-5.1) 09/15/22 06:30 Chloride 104 mmol/L (98-107) 09/15/22 06:30 Carbon Dioxide 21 mmol/L (22-29) L 09/15/22 06:30 Anion Gap 20.1 (5-19) H 09/15/22 06:30 BUN 9 mg/dL (6-20) 09/15/22 06:30 Creatinine 0.9 mg/dL (0.7-1.2) 09/15/22 06:30 GFR Calculation 99.8 mL/min (90-130) 09/15/22 06:30 Glucose 116 mg/dL (65-115) H 09/15/22 06:30 Calculated Osmolality 290 mOsm/kg (285-295) 09/15/22 06:30 Calcium 9.6 mg/dL (8.5-10.5) 09/15/22 06:30 Total Bilirubin 0.3 mg/dL (0.15-1.2) 09/15/22 06:30 AST 19 U/L (0-40) 09/15/22 06:30 ALT 15 U/L (0-41) 09/15/22 06:30 Alkaline Phosphatase 71 U/L (40-130) 09/15/22 06:30 Total Protein 7.1 g/dL (6.6-8.7) 09/15/22 06:30 Albumin 4.9 g/dL (3.5-5.2) 09/15/22 06:30 Globulin 2.2 g/dL (1.3-4.6) 09/15/22 06:30 Urine Color Yellow (Yellow) 09/15/22 06:30 Urine Appearance Clear (CLEAR) 09/15/22 06:30 Urine pH 6.5 (5-7) 09/15/22 06:30 Ur Specific [place] 1.015 (1.005-1.030) 09/15/22 06:30 Urine Protein Neg (Negative) 09/15/22 06:30 Urine Glucose (UA) Norm (Normal) 09/15/22 06:30 Urine Ketones Negative (Negative) 09/15/22 06:30 Urine Blood Neg (Negative) 09/15/22 06:30 Urine Nitrate Negative (Negative) 09/15/22 06:30 Urine Bilirubin Neg (Negative) 09/15/22 06:30 Urine Urobilinogen Norm mg/dL (Negative) 09/15/22 06:30 Ur Leukocyte Esterase Negative (Negative) 09/15/22 06:30 Salicylates < 0.3 mg/dL (3-10) L 09/15/22 06:30 Urine Opiates Screen Negative ng/mL (Negative) 09/15/22 06:30 Acetaminophen < 5.0 ug/mL (10-30) L 09/15/22 06:30 Ur Barbiturates Screen Negative ng/mL (Negative) 09/15/22 06:30 Ur Phencyclidine Scrn Negative ng/mL (Negative) 09/15/22 06:30 Ur Amphetamines Screen Positive ng/mL (Negative) H 09/15/22 06:30 U Benzodiazepines Scrn Negative ng/mL (Negative) 09/15/22 06:30 Urine Cocaine Screen Negative ng/mL (Negative) 09/15/22 06:30 U Marijuana (THC) Screen Positive ng/mL (Negative) H 09/15/22 06:30 Ethyl Alcohol < 10 mg/dL (0-10) 09/15/22 06:30 Discharge Plan Discharge Patient Disposition: Home Clinical Impression: Polysubstance abuse Condition: Stable Prescriptions: No Action No Known Home Medications Discharge Orders: Discharge ED (Routine); Ordered 09/15/22 Ordered By: Dominick Keller Patient Instructions: Opioid Safety, Pain Management Activity Restrictions/Additional Instructions: You were seen today for concern of having had a seizure and use of drugs and alcohol. No evidence of a seizure at this time. Would not recommend starting any antiseizure medications recommend abstaining from use of drugs and alcohol. Follow-up with your primary care doctor. Consider being evaluated at a facility such as [facility] for polysubstance abuse. Coding Level of Care Code ED Bindery Assistant for Ignacio Islas
[2022-09-15 07:51] LABS: Add Urine Microscopic? NO; Charge for UA Resulting for Rev
[2022-09-15 07:57] LABS: Bilirubin Urine Neg (Negative); Blood Urine Neg (Negative); Glucose Urine UA Norm (Normal); Ketones Urine Negative (Negative); Leukocyte Esterase Urine Negative (Negative); Nitrate Urine Negative (Negative); Protein Urine Neg (Negative); Specific Gravity, Urine 1.015 (1.005-1.030); Urine Appearance Clear (CLEAR); Urine Color Yellow (Yellow); Urobilinogen Urine Norm (Negative); pH Urine 6.5 (5-7)
[2022-09-15 08:02] LABS: Amphetamines Screen Urine Positive (Negative); Barbiturates Screen Urine Negative (Negative); Benzodiazepines Screen Urine Negative (Negative); Cocaine Screen Urine Negative (Negative); Opiate Screen Urine Negative (Negative); PCP Screen Urine Negative (Negative); THC Screen Urine Positive (Negative)
== END 2022-09-15 08:30 | disposition home or self-care (01) ==
PROVIDERS: Emergency Provider Family Medicine
DX: F19.10 Other psychoactive substance abuse, uncomplicated (principal); F17.210 Nicotine dependence, cigarettes, uncomplicated
CPT/HCPCS: 71045; 80053; 80306; 80307; 81003; 85025; 93005; 99285

== ENCOUNTER 2024-08-16 09:36 | Emergency (ER) | payer SELFPAY ==
[2024-08-16 09:54] VITALS: BP 159/105; PULSE 88; RESP 17; TEMP 36.6; O2SAT 100; BMI 21.4
--- NOTE | 2024-08-16 10:19 | XRR_ITS ---
PROCEDURE INFORMATION: Exam: XR Left Hand Exam date and time: 08/16/2024 10:28 AM Age: 29 years old Clinical indication: Pain; Finger(s); Patient HX: Distal 2nd digit of left hand red and swollen. PT complains of a swollen finger on his left hand. PT is unsure of mechanism of injury or cut, but states it has gradually gotten more swollen, tender, and red. PT finger is visably swollen and red. PT states he scratched his nose and noticed the same redness pop up on his skin. TECHNIQUE: Imaging protocol: Radiologic exam of the left hand. Views: 3 or more views. COMPARISON: No relevant prior studies available. FINDINGS: Bones/joints: SheNo acute fracture. No dislocation. Normal bone mineralization. No joint effusion. Joint spaces are maintained. No lytic or sclerotic bony lesions. Soft tissues: Moderate soft tissue swelling at the distal left 2nd finger. No soft tissue emphysema. No radiopaque foreign body. XR/XR hand LT min 3V* [id number] IMPRESSION: 1. No evidence for osteomyelitis on plain radiographs. MRI of the left hand without and with contrast may be obtained if there is continuing clinical concern for osteomyelitis. If the patient has any contradictions to MRI, 3 phase bone scan in conjunction with white blood cell scan may be obtained. 2. Moderate soft tissue swelling at the distal left 2nd finger.
[2024-08-16 10:27] VITALS: BP 163/88; PULSE 83; RESP 16; O2SAT 100
--- NOTE | 2024-08-16 10:30 | ED_ITS ---
HPI - Extremity Problem 2 General: Chief complaint: Extremity Injury, Upper Stated complaint: unable to move finger, hand cramping Time Seen by Provider: 08/16/24 10:08 Source: patient Mode of arrival: ambulatory Limitations: no limitations History of Present Illness: 29-year-old male who states he has had s welling and pain to the tip of his left index finger. He states it started a few days ago and is worse and he rates the pain a 6 out of 10 he had no drainage he has had erythema. Denies any known injury states he does cut his nails short. Associated symptoms: Deny chest pain, fever(s) or rash Related Data Previous Rx's Medication Instructions Recorded clindamycin HCl 300 mg capsule 300 mg PO Q8H 7 days #21 caps 08/16/24 hydrocodone 5 mg-acetaminophen 325 1 tab PO Q6H PRN pain #14 tabs 08/16/24 mg tablet Allergies Allergy/AdvReac Type Severity Reaction Status Date / Time No Known Allergies Allergy Verified 09/15/22 07:40 Review of Systems 2 Const: Denies: fever(s), chills, body aches or change in appetite ENMT: Denies: throat pain or dental pain Card: Denies: chest pain Resp: Denies: dyspnea GI: Denies: abdominal pain, nausea, vomiting or diarrhea : Denies: dysuria Musc: Reports: extremity pain; Denies: neck pain or back pain Skin/Breast: Reports: erythema; Denies: rash Neuro: Denies: headache(s) PFSH ED 2 PFSH: Medical History Fracture of fifth metacarpal bone of right hand Surgical History No significant past surgical history Social History (Updated 09/15/22 @ 07:39 by Dominick Keller DO) Smoking and tobacco/nicotine status: current every day tobacco/nicotine user Alcohol intake: current Substance/Drug Use: current Physical Exam 2 Const: COMMON NORMALS: no acute distress, patient oriented x3 and healthy appearing HENMT: COMMON NORMALS: normocephalic and atraumatic HEAD & SCALP: n ormocephalic and atraumatic Eye: COMMON NORMALS: conjunctivae normal CONJUNCTIVA: Yes conjunctivae normal Neck/C-Spine: COMMON NORMALS: full ROM and supple Chest: COMMONS NORMALS: normal inspection of the chest Resp: COMMON NORMALS: normal respiratory effort Cardio: COMMON NORMALS: regular rate RATE: regular rate Extremity: COMMON NORMALS: full ROM NARRATIVE EXTREMITY EXAM: Paronychia noted to left index finger no tenderness along the flexor sheath no signs of flexor tenosynovitis Neuro: COMMON NORMALS: patient oriented x3, moves all extremities and no focal motor deficits Psych: COMMON NORMALS: mental status grossly normal, Normal thought process present and cooperative THOUGHT PROCESS: Normal thought process present Skin: COMMON NORMALS: no rashes or lesions noted GENERAL SKIN EXAM: no rashes or lesions noted Procedures Abscess I/D Site: hand Side (if applicable): left Local Anesthetic: bupivacaine 0.5% Amount of anesthesia used (mL): 10 Technique: incised with #11 blade Irrigation: No Packing used?: none Course 2 Vital Signs: Vital signs: Vital Signs Temperature 97.8 F 08/16/24 09:54 Pulse Rate 77 08/16/24 11:00 Respiratory Rate 18 08/16/24 11:00 Blood Pressure 137/85 08/16/24 11:00 Pulse Oximetry 100 08/16/24 11:00 Oxygen Delivery Me thod Room Air 08/16/24 11:00 MDM - Extremity (Nontraumatic) Medical Decision Making Patient presents here with paronychia did numb his finger incised around the nailbed had drainage he also has a slight fell on I did make a incision on the radial aspect of his distal index finger on the left did break up loculations with hemostats his blood work here is normal he has no signs of flexor tenosynovitis we will start him on antibiotics and have him follow-up with orthopedics he is return if worsening he understands agrees to plan Medical Records I reviewed the patient's medical records. Lab Data I reviewed the patient's lab results. 08/16/24 10:28 08/16/24 10:28 Laboratory Results WBC 13.38 10^3/uL (3.29-11.43) H 08/16/24 10:28 RBC 5.18 10^6/uL (3.85-5.65) 08/16/24 10:28 Hgb 14.80 g/dL (11.27-16.99) 08/16/24 10:28 Hct 44.1 % (37-53) 08/16/24 10:28 MCV 85.1 fl (82-101) 08/16/24 10:28 MCH 28.6 pg (27-33) 08/16/24 10:28 MCHC 33.6 g/dL (30-55) 08/16/24 10:28 RDW 12.8 % (12.1-15.1) 08/16/24 10:28 Plt Count 294 10^3/cmm (157-399) 08/16/24 10:28 MPV 9.9 fL (7.4-10.4) 08/16/24 10:28 Neut % (Auto) 71.3 % 08/16/24 10:28 Lymph % (Auto) 20.5 % 08/16/24 10:28 [place] % (Auto) 7.2 % 08/16/24 10:28 Eos % (Auto) 0.4 % 08/16/24 10:28 Baso % (Auto) 0.2 % 08/16/24 10:28 Neut # (Auto) 9.54 10^3/uL (1.8-7.7) H 08/16/24 10:28 Lymph # (Auto) 2.7 10^3/uL (0.8-4.8) 08/16/24 10:28 [place] # (Auto) 1.0 10^3/uL (0.2-0.9) H 08/16/24 10:28 Eos # (Auto) 0.1 10^3/uL (0.0-0.8) 08/16/24 10:28 Baso # (Auto) 0.0 10^3/uL (0.0-0.1) 08/16/24 10:28 Nucleated RBC % (auto) 0 % 08/16/24 10:28 Nucleated RBCs # 0.0 /100WBC 08/16/24 10:28 ESR 3 mm/hr (0-10) 08/16/24 10:28 Sodium 137 mmol/L (136-145) 08/16/24 10:28 Potassium 3.8 mmol/L (3.5-5.1) 08/16/24 10:28 Chloride 99 mmol/L (98-107) 08/16/24 10:28 Carbon Dioxide 25 mmol/L (22-29) 08/16/24 10:28 Anion Gap 16.8 (5-19) 08/16/24 10:28 BUN 8 mg/dL (6-20) 08/16/24 10:28 Creatinine 1.0 mg/dL (0.7-1.2) 08/16/24 10:28 GFR Calculation 87.2 mL/min (90-130) L 08/16/24 10:28 Glucose 106 mg/dL (65-115) 08/16/24 10:28 Calculated Osmolality 283 mOsm/kg (285-295) L 08/16/24 10:28 Calcium 9.6 mg/dL (8.5-10.5) 08/16/24 10:28 Total Bilirubin 1.1 mg/dL (0.15-1.2) 08/16/24 10:28 AST 15 U/L (0-40) 08/16/24 10:28 ALT 10 U/L (0-41) 08/16/24 10:28 Alkaline Phosphatase 90 U/L (40-130) 08/16/24 10:28 C-Reactive Protein 31.9 mg/L (0.0-4.9) H 08/16/24 10:28 Total Protein 7.3 g/dL (6.6-8.7) 08/16/24 10:28 Albumin 4.6 g/dL (3.5-5.2) 08/16/24 10:28 Globulin 2.7 g/dL (1.3-4.6) 08/16/24 10:28 All radiology interpretation(s) finalized by discharge Discharge Plan Discharge Patient Disposition: Home Clinical Impression: Paronychia Condition: Stable Prescriptions: New clindamycin HCl 300 mg capsule 300 mg PO Q8H 7 Days Qty: 21 0RF hydrocodone-acetaminophen 5-325 mg tablet 1 tab PO Q6H PRN (Reason: pain) Qty: 14 0RF Discharge Orders: Discharge ED (Routine); Ordered 08/16/24 Ordered By: Marlene Sofia Referrals: Bud Benton DO [Physician] - 1-3 days Discharge Diet: Advance as tolerated Discharge Activity: Resume usual activity Patient Instructions: Paronychia (ED) Coding Level of Care Code ED Photo Producer for Dianeg Janel
[2024-08-16 10:34] VITALS: RESP 20; O2SAT 98
[2024-08-16] MEDS: morphine 4 mg/mL SDV 1 mL IVP (10:34)
[2024-08-16] MEDS: BUPivacaine 0.5% INJ 10 mL INJECTION (10:35)
[2024-08-16] MEDS: ondansetron 2 mg/ML SDV 2 mL 4 MG IVP (10:35)
[2024-08-16 10:38] LABS: Basophils % 0.2 %; Eosinophils # 0.1 10^3/uL (0.0-0.8); Eosinophils % 0.4 %; Hematocrit 44.1 % (37-53); Lymphocytes # 2.7 10^3/uL (0.8-4.8); Lymphocytes % 20.5 %; Mean Corpuscular HGB Conc 33.6 g/dL (30-55); Mean Corpuscular Hemoglobin 28.6 pg (27-33); Mean Corpuscular Volume 85.1 fl (82-101); Mean Platelet Volume 9.9 fL (7.4-10.4); Monocytes % 7.2 %; Neutrophils # 9.54 10^3/uL (1.8-7.7); Neutrophils % 71.3 %; Nucleated Red Blood Cells % 0 %; Platelet Count 294 10^3/cmm (157-399); Red Blood Count 5.18 10^6/uL (3.85-5.65); Red Cell Distribution Width 12.8 % (12.1-15.1); White Blood Count 13.38 10^3/uL (3.29-11.43)
[2024-08-16] MEDS: VANCOMYCIN ADD-Vantage 1,000 MG in 0.9% NaCl ADD-Vantage 250 ML 250 MG IV (10:39)
[2024-08-16 10:42] LABS: Erythrocyte Sedimentation Rate 3 mm/hr (0-10)
[2024-08-16 10:57] LABS: Alanine Aminotransferase 10 U/L (0-41); Albumin Level 4.6 g/dL (3.5-5.2); Alkaline Phosphatase 90 U/L (40-130); Anion Gap 16.8 (5-19); Aspartate Amino Transferase 15 U/L (0-40); Blood Urea Nitrogen 8 mg/dL (6-20); C Reactive Protein 31.9 mg/L (0.0-4.9); Calcium 9.6 mg/dL (8.5-10.5); Carbon Dioxide 25 mmol/L (22-29); Chloride 99 mmol/L (98-107); Creatinine Clr Calc Pharmacy 104.0472; Globulin 2.7 g/dL (1.3-4.6); Glomerular Filtration Rate 87.2 mL/min (90-130); Glucose 106 mg/dL (65-115); Osmolality Calculated 283 mOsm/kg (285-295); Potassium 3.8 mmol/L (3.5-5.1); Sodium 137 mmol/L (136-145); Total Bilirubin 1.1 mg/dL (0.15-1.2); Total Protein 7.3 g/dL (6.6-8.7)
[2024-08-16 10:58] VITALS: BP 124/84; PULSE 80; O2SAT 96
[2024-08-16 11:00] VITALS: BP 137/85; PULSE 77; RESP 18; O2SAT 100
[2024-08-16 11:58] VITALS: BP 133/75; PULSE 77; O2SAT 100
--- NOTE | 2024-08-18 09:20 | DCPLANNER ---
message sent to Ortho for pain and swelling in left index finger.
== END 2024-08-16 12:00 | disposition home or self-care (01) ==
PROVIDERS: Emergency Provider Emergency Medicine
DX: L03.012 Cellulitis of left finger (principal); Z72.0 Tobacco use
CPT/HCPCS: 26010; 73130; 80053; 85025; 85651; 86140; 96365; 96375; 99284; J2270; J2405; J3370; J3490; J7050

== ENCOUNTER 2024-08-21 14:00 | Emergency (ER) | payer SELFPAY ==
[2024-08-21 14:09] VITALS: BP 161/106; PULSE 80; RESP 14; TEMP 36.6; O2SAT 100; BMI 21.2
--- NOTE | 2024-08-21 14:12 | XR_ITS ---
WS: [id number] Left hand, 3 views, 08/21/2024 Clinical Data: injury Comparison: Left hand, 08/16/2024 Findings: Distal phalanx of the left second finger shows swelling with destruction of the ungual tuft. The baltazar garret of the hand shows no swelling or bone destruction. There is an old fracture of the left fifth m etacarpal. There is irregularity of the distal phalanx of the left fifth finger. XR/XR hand LT min 3V* [id number] Impression: Swelling of the distal phalanx of the left second finger with bone erosion cons istent with cellulitis and possible osteomyelitis.
--- NOTE | 2024-08-21 14:21 | ED_ITS ---
HPI - Wound/Laceration 2 General: Chief Complaint: Wound/Laceration Stated Complaint: finger infection? sent from urgent care Time Seen by Provider: 08/21/24 14:04 Source: patient Mode of arrival: ambulatory Limitations: no limitations History of Present Illness: 29-year-old male who is seen here by me 5 days ago for paronychia along with the felon and did drain the paronychia and felon placed on clindamycin he states that he has been having some increased swelling erythema mainly started last 2 days. His finger does appear much worse with distal swelling he has some erythema down his fingers well he states he is now having some hard time bending it. Associated symptoms: Denies chills, fever(s), nausea or vomiting Related Data Home Medications Medication Instructions Recorded Confirmed acetaminophen 500 mg tablet 1,000 mg PO QID PRN Fever Or Pain 08/21/24 08/21/24 (Tylenol Extra Strength) aspirin 81 mg tablet,delayed 81 mg PO DAILY 08/21/24 08/21/24 release (Rashi Low Dose Aspirin) ibuprofen 200 mg tablet (Advil) 800 mg PO Q6H PRN Fever Or Pain 08/21/24 08/21/24 Previous Rx's Medication Instructions Recorded clindamycin HCl 300 mg capsule 300 mg PO Q8H 7 days #21 caps 08/16/24 Allergies Allergy/AdvReac Type Severity Reaction Status Date / Time No Known Allergies Allergy Verified 08/21/24 14:16 Review of Systems 2 Const: Denies: fever(s), chills, body aches or change in appetite ENMT: Denies: throat pain or dental pain Card: Denies: chest pain Resp: Denies: dyspnea GI: Denies: abdominal pain, nausea, vomiting or diarrhea Musc: Reports: extremity pain; Denies: neck pain or back pain Skin/Breast: Denies: rash Neuro: Denies: headache(s) PFSH ED 2 PFSH: Medical History Fracture of fifth metacarpal bone of right hand Surgical History No significant past surgical history Social History Smoking and tobacco/nicotine status: never used tobacco/nicotine Alcohol intake: current Substance/Drug Use: current Physical Exam 2 Const: COMMON NORMALS: patient oriented x3 HENMT: COMMON NORMALS: normocephalic and atraumatic HEAD & SCALP: n ormocephalic and atraumatic Neck/C-Spine: COMMON NORMALS: full ROM and supple Chest: COMMONS NORMALS: normal inspection of the chest Resp: COMMON NORMALS: normal respiratory effort Cardio: COMMON NORMALS: regular rate RATE: regular rate Extremity: NARRATIVE EXTREMITY EXAM: Erythema to distal tip of the finger with swelling and some erythema down his fingers well he is able to flex his finger does have some limited range of motion no severe tenderness along the flexor sheath Neuro: COMMON NORMALS: patient oriented x3, moves all extremities and no focal motor deficits Psych: COMMON NORMALS: mental status grossly normal, Normal thought process present and cooperative THOUGHT PROCESS: Normal thought process present Skin: COMMON NORMALS: no rashes or lesions noted and no wounds GENERAL SKIN EXAM: no rashes or lesions noted Course 2 Vital Signs: Vital signs: Vital Signs Temperature 97.9 F 08/21/24 14:09 Pulse Rate 76 08/21/24 15:30 Respiratory Rate 14 08/21/24 14:09 Blood Pressure 156/93 08/21/24 15:30 Pulse Oximetry 99 08/21/24 15:30 Oxygen Delivery Me thod Room Air 08/21/24 14:09 MDM - Wound/Laceration Medical Decision Making Patient presents with a paronychia and likely felon and has worsened since Sunday his inflammatory markers here are normal did give him a dose of IV vancomycin I spoke to hand surgeon Dr. Juarez showed her the images she is going to see him in the outpatient hospital at [facility] tomorrow at noon I informed patient of this and informed him it is very imperative he shows up to that appointment at noon to have it drained he understands agrees to plan Medical Records I reviewed the patient's medical records. Lab Data I reviewed the patient's lab results. 08/21/24 14:29 08/21/24 14:29 Radiology Impressions Hand X-Ray 08/21/24 14:12 Impression: Swelling of the distal phalanx of the left second finger with bone erosion consistent with cellulitis and possible osteomyelitis. Laboratory Results WBC 9.52 10^3/uL (3.29-11.43) 08/21/24 14: RBC 5.20 10^6/uL (3.85-5.65) 08/21/24 14:29 Hgb 14.80 g/dL (11.27-16.99) 08/21/24 14:29 Hct 44.3 % (37-53) 08/21/24 14:29 MCV 85.2 fl (82-101) 08/21/24 14:29 MCH 28.5 pg (27-33) 08/21/24 14: MCHC 33.4 g/dL (30-55) 08/21/24 14: RDW 12.4 % (12.1-15.1) 08/21/24 14: Plt Count 397 10^3/cmm (157-399) 08/21/24 14: MPV 9.5 fL (7.4-10.4) 08/21/24 14:29 Neut % (Auto) 68.0 % 08/21/24 14:29 Lymph % (Auto) 25.5 % 08/21/24 14:29 [place] % (Auto) 5.0 % 08/21/24 14:29 Eos % (Auto) 0.8 % 08/21/24 14: Baso % (Auto) 0.4 % 08/21/24 14: Neut # (Auto) 6.46 10^3/uL (1.8-7.7) 08/21/24 14: Lymph # (Auto) 2.4 10^3/uL (0.8-4.8) 08/21/24 14:29 [place] # (Auto) 0.5 10^3/uL (0.2-0.9) 08/21/24 14:29 Eos # (Auto) 0.1 10^3/uL (0.0-0.8) 08/21/24 14: Baso # (Auto) 0.0 10^3/uL (0.0-0.1) 08/21/24 14: Nucleated RBC % (auto) 0 % 08/21/24 14: Nucleated RBCs # 0.0 /100WBC 08/21/24 14:29 ESR 16 mm/hr (0-10) H 08/21/24 14:29 Sodium 141 mmol/L (136-145) 08/21/24 14:29 Potassium 3.9 mmol/L (3.5-5.1) 08/21/24 14:29 Chloride 103 mmol/L (98-107) 08/21/24 14:29 Carbon Dioxide 26 mmol/L (22-29) 08/21/24 14:29 Anion Gap 15.9 (5-19) 08/21/24 14:29 BUN 12 mg/dL (6-20) 08/21/24 14:29 Creatinine 0.9 mg/dL (0.7-1.2) 08/21/24 14:29 GFR Calculation 98.4 mL/min (90-130) 08/21/24 14:29 Glucose 96 mg/dL (65-115) 08/21/24 14:29 Calculated Osmolality 292 mOsm/kg (285-295) 08/21/24 14:29 Calcium 9.9 mg/dL (8.5-10.5) 08/21/24 14:29 Total Bilirubin 0.3 mg/dL (0.15-1.2) 08/21/24 14:29 AST 14 U/L (0-40) 08/21/24 14:29 ALT 10 U/L (0-41) 08/21/24 14:29 Alkaline Phosphatase 89 U/L (40-130) 08/21/24 14:29 C-Reactive Protein 19.4 mg/L (0.0-4.9) H 08/21/24 14:29 Total Protein 7.8 g/dL (6.6-8.7) 08/21/24 14:29 Albumin 4.6 g/dL (3.5-5.2) 08/21/24 14:29 Globulin 3.2 g/dL (1.3-4.6) 08/21/24 14:29 All radiology interpretation(s) finalized by discharge Discharge Plan Discharge Patient Disposition: Home Clinical Impression: Paronychia, Felon of finger of left hand Condition: Stable Prescriptions: No Action clindamycin HCl 300 mg capsule 300 mg PO Q8H 7 Days Qty: 21 0RF aspirin [Rashi Low Dose Aspirin] 81 mg Tablet,Delayed Release (Dr/Ec) 81 mg PO DAILY acetaminophen [Tylenol Extra Strength] 500 mg Tablet 1,000 mg PO QID PRN (Reason: Fever Or Pain) ibuprofen [Advil] 200 mg Tablet 800 mg PO Q6H PRN (Reason: Fever Or Pain) Discharge Orders: Discharge ED (Routine); Ordered 08/21/24 Ordered By: Marlene Sofia Referrals: Elian Juarez [Referring] - 1-3 days (tomorrow at noon ortho [facility] on [address]) Discharge Diet: Advance as tolerated Discharge Activity: Resume usual activity Patient Instructions: Paronychia (ED) Coding Level of Care Code ED Manager Small Business for Ignacio Islas
[2024-08-21] MEDS: ondansetron 2 mg/ML SDV 2 mL 4 MG IVP (14:36)
[2024-08-21] MEDS: HYDROmorphone 1 mg/mL INJ 1 mL IVP (14:36)
[2024-08-21] MEDS: VANCOMYCIN ADD-Vantage 1,000 MG in 0.9% NaCl ADD-Vantage 250 ML 250 MG IV (14:39)
[2024-08-21 14:40] VITALS: BP 167/95; PULSE 76; O2SAT 100
[2024-08-21 14:41] LABS: Basophils % 0.4 %; Eosinophils # 0.1 10^3/uL (0.0-0.8); Eosinophils % 0.8 %; Hematocrit 44.3 % (37-53); Lymphocytes # 2.4 10^3/uL (0.8-4.8); Lymphocytes % 25.5 %; Mean Corpuscular HGB Conc 33.4 g/dL (30-55); Mean Corpuscular Hemoglobin 28.5 pg (27-33); Mean Corpuscular Volume 85.2 fl (82-101); Mean Platelet Volume 9.5 fL (7.4-10.4); Monocytes # 0.5 10^3/uL (0.2-0.9); Neutrophils # 6.46 10^3/uL (1.8-7.7); Nucleated Red Blood Cells % 0 %; Platelet Count 397 10^3/cmm (157-399); Red Cell Distribution Width 12.4 % (12.1-15.1); White Blood Count 9.52 10^3/uL (3.29-11.43)
[2024-08-21 14:54] LABS: Alanine Aminotransferase 10 U/L (0-41); Albumin Level 4.6 g/dL (3.5-5.2); Alkaline Phosphatase 89 U/L (40-130); Anion Gap 15.9 (5-19); Aspartate Amino Transferase 14 U/L (0-40); Blood Urea Nitrogen 12 mg/dL (6-20); C Reactive Protein 19.4 mg/L (0.0-4.9); Calcium 9.9 mg/dL (8.5-10.5); Carbon Dioxide 26 mmol/L (22-29); Chloride 103 mmol/L (98-107); Creatinine Clr Calc Pharmacy 115.3025; Globulin 3.2 g/dL (1.3-4.6); Glomerular Filtration Rate 98.4 mL/min (90-130); Glucose 96 mg/dL (65-115); Osmolality Calculated 292 mOsm/kg (285-295); Potassium 3.9 mmol/L (3.5-5.1); Sodium 141 mmol/L (136-145); Total Bilirubin 0.3 mg/dL (0.15-1.2); Total Protein 7.8 g/dL (6.6-8.7)
[2024-08-21 14:56] LABS: Erythrocyte Sedimentation Rate 16 mm/hr (0-10)
[2024-08-21 15:30] VITALS: BP 155/87; BP 156/93; PULSE 70; PULSE 76; O2SAT 99
== END 2024-08-21 16:10 | disposition home or self-care (01) ==
PROVIDERS: Emergency Provider Emergency Medicine
DX: L03.012 Cellulitis of left finger (principal); Z79.82 Long term (current) use of aspirin
CPT/HCPCS: 36415; 73130; 80053; 85025; 85651; 86140; 96374; 96375; 99284; J1171; J2405; J3370; J7050

== ENCOUNTER 2024-12-17 13:03 | Emergency (ER) | payer SELFPAY ==
[2024-12-17 13:22] VITALS: BP 143/79; PULSE 69; RESP 16; TEMP 36.6; O2SAT 100
--- NOTE | 2024-12-17 13:56 | ECG_ITS ---
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 Measurements Intervals [place] Rate: 69 P: 35 VT: 122 QRS: 60 QRSD: 93 T: 61 QT: 350 QTc: 376 Interpretive Statements SINUS RHYTHM WITH SINUS ARRHYTHMIA Compared to ECG 09/15/2022 06:30:41 Sinus tachycardia no longer present T-wave abnormality no longer present Possible ischemia no longer present Electronically Signed On 12-18-2024 18:08:32 CDT by Moises Doll M.D. [email or web address] [id number]
[2024-12-17 14:24] LABS: Basophils % 0.7 %; Eosinophils # 0.1 10^3/uL (0.0-0.8); Eosinophils % 0.8 %; Hematocrit 45.7 % (37-53); Lymphocytes # 1.8 10^3/uL (0.8-4.8); Lymphocytes % 30.2 %; Mean Corpuscular HGB Conc 34.4 g/dL (30-55); Mean Corpuscular Hemoglobin 28.9 pg (27-33); Mean Platelet Volume 9.6 fL (7.4-10.4); Monocytes # 0.4 10^3/uL (0.2-0.9); Monocytes % 6.4 %; Neutrophils # 3.72 10^3/uL (1.8-7.7); Neutrophils % 61.6 %; Nucleated Red Blood Cells % 0 %; Platelet Count 265 10^3/cmm (157-399); Red Blood Count 5.44 10^6/uL (3.85-5.65); White Blood Count 6.05 10^3/uL (3.29-11.43)
[2024-12-17 14:43] LABS: Troponin(5th) Baseline 7 ng/L (0-15)
[2024-12-17 14:46] VITALS: BP 147/89; PULSE 65; RESP 16; O2SAT 97
[2024-12-17 14:51] LABS: Alanine Aminotransferase 14 U/L (0-41); Albumin Level 4.7 g/dL (3.5-5.2); Alkaline Phosphatase 84 U/L (40-130); Anion Gap 17.2 (5-19); Aspartate Amino Transferase 16 U/L (0-40); Blood Urea Nitrogen 11 mg/dL (6-20); Calcium 9.4 mg/dL (8.5-10.5); Carbon Dioxide 24 mmol/L (22-29); Chloride 104 mmol/L (98-107); Globulin 2.3 g/dL (1.3-4.6); Glomerular Filtration Rate 98.4 mL/min (90-130); Glucose 90 mg/dL (65-115); Lipase 18 U/L (13-60); Osmolality Calculated 291 mOsm/kg (285-295); Potassium 4.2 mmol/L (3.5-5.1); Sodium 141 mmol/L (136-145)
--- NOTE | 2024-12-17 15:04 | ED_ITS ---
HPI - Chest Pain 2 General: Chief Complaint: Chest Pain Stated Complaint: infection Time Seen by Provider: 12/17/24 14:50 History of Present Illness: 29-year-old man who presents emergency r oom with chest pain. This been going on for few days now. Intermittent with sharp pain on the right. He states his blood pressure gets high and his pulse gets low. No fevers. Related Data Home Medications ?Medication ?Instructions ?Recorded ?Confirmed acetaminophen 500 mg tablet 1,000 mg PO QID PRN Fever Or Pain 08/21/24 12/17/24 (Tylenol Extra Strength) aspirin 81 mg tablet,delayed 81 mg PO DAILY PRN Pain 0 08/21/24 12/17/24 release (Rashi Low Dose Aspirin) ibuprofen 200 mg tablet (Advil) 800 mg PO Q6H PRN Feve r Or Pain 08/21/24 12/17/24 Previous Rx's ?Medication ?Instructions ?Recorded dexamethasone 6 mg tablet 6 mg PO DAILY 5 days #5 tabs 12/17/24 diclofenac sodium 50 mg 50 mg PO BID PRN pain #14 ta bs 12/17/24 tablet,delayed release Allergies Allergy/AdvReac Type Severity Reaction Status Date / Time No Known Allergies Allergy Verified 08/21/24 14:16 Review of Systems 2 Narrative: Constitutional symptoms: Negative except as documented in HPI. Skin symptoms: Negative except as documented in HPI. Eye symptoms: Negative except as documented in HPI. ENMT symptoms: Negative except as documented in HPI. Respiratory symptoms: Negative except as documented in HPI. Cardiovascular symptoms: Negative except as documented in HPI. Gastrointestinal symptoms: Negative except as documented in HPI. Genitourinary symptoms: Negative except as documented in HPI. Musculoskeletal symptoms: Negative except as documented in HPI. Neurologic symptoms: Negative except as documented in HPI. Psychiatric symptoms: Negative except as documented in HPI. Endocrine symptoms: Negative except as documented in HPI. PFSH ED 2 PFSH: Medical History Fracture of fifth metacarpal bone of right hand Surgical History No significant past surgical history Social History Smoking and tobacco/nicotine status: never used tobacco/nicotine Alcohol intake: current Substance/Drug Use: current Physical Exam 2 Narrative: EXAM NARRATIVE: General: Alert, no acute distress. Skin: Warm, dry. Head: Normocephalic, atraumatic. Neck: Supple, trachea midline. Eye: Extraocular movements are intact. Ears, nose, mouth and throat: mucosa moist. Cardiovascular: Regular, Normal peripheral perfusion. Respiratory: Lungs are clear to auscultation, respirations are non-labored, breath sounds are equal, Symmetrical chest wall expansion. Gastrointestinal: Soft, Nontender, Non distended Musculoskeletal: Normal ROM, no deformity. Neurological: Alert and oriented, No focal neurological deficit observed. Psychiatric: Cooperative, appropriate mood & affect. Course 2 Vital Signs: Vital signs: Vital Signs Temperature 97.9 F 12/17/24 13:22 Pulse Rate 65 12/17/24 14:46 Respiratory Rate 16 12/17/24 14:46 Blood Pressure 147/89 12/17/24 15:13 Pulse Oximetry 100 12/17/24 15:13 Oxygen Delivery Me thod Room Air 12/17/24 13:22 MDM - Chest Pain Medical Decision Making Differential diagnosis for patient with chest pain includes but is not limited to and based on the above HPI, review of systems and physical exam: Pneumonia. unstable angina. angina. Acute coronary syndrome / [place]. Pulmonary embolism. Costochondritis / musculoskeletal. Pleurisy. Pericarditis. Esophageal spasm. Pancreatis. Cholecystitis. Orders placed to evaluate differential diagnosis based on the above differential, HPI and physical exam EKG: Time 1321. Rate 69. Normal sinus rhythm, No ST-T changes, no ectopy, normal AL & QRS intervals, This was reviewed and interpreted by myself the ER physician at 1328 Chest x-ray: No acute process. No infiltrate. No pneumothorax. This was reviewed and interpreted by myself the emergency room physician. I also reviewed the radiology report. Lab Review: Laboratory results were reviewed and interpreted by myself the emergency room physician. No leukocytosis. No anemia. No renal failure. D-dimer is negative and serial troponins are negative. I reviewed the patient's medical record. Reexamination: Patient remained stable. No increased work of breathing. No altered mental status. No focal motor deficits. Assessment and plan: Noncardiac chest pain - Discharged home - Discussed plan with patient. Answered any questions. - Evaluation and treatment of this problem were appropriate in the emergency setting. Lab Data 12/17/24 14:18 12/17/24 14:18 Radiology Impressions Chest X-Ray 12/17/24 15:09 Impression: Negative chest. Laboratory Results WBC 6.05 10^3/uL (3.29-11.43) 12/17/24 14:18 RBC 5.44 10^6/uL (3.85-5.65) 12/17/24 14:18 Hgb 15.70 g/dL (11.27-16.99) 12/17/24 14:18 Hct 45.7 % (37-53) 12/17/24 14:18 MCV 84.0 fl (82-101) 12/17/24 14:18 MCH 28.9 pg (27-33) 12/17/24 14:18 MCHC 34.4 g/dL (30-55) 12/17/24 14:18 RDW 13.0 % (12.1-15.1) 12/17/24 14:18 Plt Count 265 10^3/cmm (157-399) 12/17/24 14:18 MPV 9.6 fL (7.4-10.4) 12/17/24 14:18 Neut % (Auto) 61.6 % 12/17/24 14:18 Lymph % (Auto) 30.2 % 12/17/24 14:18 [place] % (Auto) 6.4 % 12/17/24 14:18 Eos % (Auto) 0.8 % 12/17/24 14:18 Baso % (Auto) 0.7 % 12/17/24 14:18 Neut # (Auto) 3.72 10^3/uL (1.8-7.7) 12/17/24 14:18 Lymph # (Auto) 1.8 10^3/uL (0.8-4.8) 12/17/24 14:18 [place] # (Auto) 0.4 10^3/uL (0.2-0.9) 12/17/24 14:18 Eos # (Auto) 0.1 10^3/uL (0.0-0.8) 12/17/24 14:18 Baso # (Auto) 0.0 10^3/uL (0.0-0.1) 12/17/24 14:18 Nucleated RBC % (auto) 0 % 12/17/24 14:18 Nucleated RBCs # 0.0 /100WBC 12/17/24 14:18 D-Dimer <= 0.27 ug/mLFEU (0-0.59) 12/17/24 14:18 Sodium 141 mmol/L (136-145) 12/17/24 14:18 Potassium 4.2 mmol/L (3.5-5.1) 12/17/24 14:18 Chloride 104 mmol/L (98-107) 12/17/24 14:18 Carbon Dioxide 24 mmol/L (22-29) 12/17/24 14:18 Anion Gap 17.2 (5-19) 12/17/24 14:18 BUN 11 mg/dL (6-20) 12/17/24 14:18 Creatinine 0.9 mg/dL (0.7-1.2) 12/17/24 14:18 GFR Calculation 98.4 mL/min (90-130) 12/17/24 14:18 Glucose 90 mg/dL (65-115) 12/17/24 14:18 Calculated Osmolality 291 mOsm/kg (285-295) 12/17/24 14:18 Calcium 9.4 mg/dL (8.5-10.5) 12/17/24 14:18 Total Bilirubin 1.0 mg/dL (0.15-1.2) 12/17/24 14:18 AST 16 U/L (0-40) 12/17/24 14:18 ALT 14 U/L (0-41) 12/17/24 14:18 Alkaline Phosphatase 84 U/L (40-130) 12/17/24 14:18 Troponin T Baseline 7 ng/L (0-15) 12/17/24 14:18 Troponin T 120 Minute 6.55 ng/L (0-15) 12/17/24 15:30 Delta Troponin T -0.45 ABS# (0-10) L 12/17/24 15:30 C-Reactive Protein 3.0 mg/L (0.0-4.9) 12/17/24 14:18 Total Protein 7.0 g/dL (6.6-8.7) 12/17/24 14:18 Albumin 4.7 g/dL (3.5-5.2) 12/17/24 14:18 Globulin 2.3 g/dL (1.3-4.6) 12/17/24 14:18 Lipase 18 U/L (13-60) 12/17/24 14:18 All radiology interpretation(s) finalized by discharge Discharge Plan Discharge Patient Disposition: Home Clinical Impression: Non-cardiac chest pain Condition: Stable Prescriptions: New dexamethasone 6 mg tablet 6 mg PO DAILY 5 Days Qty: 5 0RF diclofenac sodium 50 mg tablet,delayed release (DR/EC) 50 mg PO BID PRN (Reason: pain) Qty: 14 0RF No Action aspirin [Rashi Low Dose Aspirin] 81 mg Tablet,Delayed Release (Dr/Ec) 81 mg PO DAILY PRN (Reason: Pain) acetaminophen [Tylenol Extra Strength] 500 mg Tablet 1,000 mg PO QID PRN (Reason: Fever Or Pain) ibuprofen [Advil] 200 mg Tablet 800 mg PO Q6H PRN (Reason: Fever Or Pain) Discharge Orders: Discharge ED (Routine); Ordered 12/17/24 Ordered By: Irma Valdez Discharge Diet: Usual diet Discharge Activity: Increase activity as tolerated Patient Instructions: Noncardiac Chest Pain (ED), Opioid Safety, Pain Management Activity Restrictions/Additional Instructions: Thank you for choosing [facility] for your healthcare needs today. You have been screened and evaluated and felt safe for discharge. Health conditions do change or evolve sometimes and as such it is important that you follow up with your Primary Doctor to be re checked, 3-5 days is a general good time frame for follow up. You are always welcome to return to the ED for re assessment if your symptoms are worsening or you have new concerns Print Language: Singaporean Coding Level of Care Code ED Senior Policy Analyst for Ignacio Islas
--- NOTE | 2024-12-17 15:09 | XR_ITS ---
WS: [id number] Portable AP upright chest, 12/17/2024 Clinical Data: Chest pain Comparison: PA and lateral chest, 01/07/2024 Findings: No nodules, masses or effusions are seen. The heart is normal. The pulmonary vascularity is not increased. No pneumonia or pneumothorax is seen. XR/XR chest 1V portable [id number] Impression: Negative chest.
[2024-12-17 15:13] VITALS: BP 147/89; O2SAT 100
[2024-12-17 15:19] LABS: D Dimer <= 0.27 ug/mLFEU (0-0.59)
--- NOTE | 2024-12-17 15:56 | ECG_ITS ---
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 Measurements Intervals [place] Rate: 59 P: 24 GA: 137 QRS: 62 QRSD: 85 T: 58 QT: 351 QTc: 350 Interpretive Statements SINUS BRADYCARDIA EARLY REPOLARIZATION [ST ELEVATION WITH NORMALLY INFLECTED T-WAVE] Compared to ECG 12/17/2024 13:21:29 Early repolarization now present Sinus rhythm no longer present Sinus arrhythmia no longer present Electronically Signed On 12-18-2024 18:23:33 CDT by Moises Doll M.D. [email or web address] [id number]
[2024-12-17 15:58] LABS: Troponin 5 2HR 6.55 ng/L (0-15)
[2024-12-17 15:59] LABS: Troponin 5 2HR Delta -0.45 ABS# (0-10)
== END 2024-12-17 17:09 | disposition home or self-care (01) ==
PROVIDERS: Emergency Provider Emergency Medicine
DX: R07.89 Other chest pain (principal); Z79.82 Long term (current) use of aspirin
CPT/HCPCS: 36415; 71045; 80053; 83690; 84484; 85025; 85378; 86140; 93005; 99285